=== PATIENT | male | born 1990 | race Caucasian/White ===

== ENCOUNTER 2017-07-11 01:16 | Emergency (ER) | payer SELFPAY ==
[2017-07-11 01:23] VITALS: BP 130/82
[2017-07-11] MEDS ORDERED: GABAPENTIN 300 MG CAPSULE PO ONE (01:46)
--- NOTE | 2017-07-11 01:54 | ER Document Report ---
ED Skin Rash/Insect Bite/Abscs - General Chief Complaint: Rash Stated Complaint: RASH Time Seen by Provider: 07/11/17 01:45 Notes: 27 years old male, had chickenpox as a child, 2 days ago started having pain over the right flank and today just prior to arrival he noticed rash along the right flank. Therefore presented to the ED. No fever chills or other constitutional symptoms. The pain is sharp and dermatomal pattern. TRAVEL OUTSIDE OF THE [place] IN LAST 30 DAYS: No - Related Data Allergies/Adverse Reactions: No Known Allergies Allergy (Verified 09/09/14 16:36) Past Medical History - Social History Smoking Status: Unknown if Ever Smoked Family History: None Patient has suicidal ideation: No Patient has homicidal ideation: No Pulmonary Medical History: Denies: Hx Tuberculosis Renal/ Medical History: Denies: Hx Peritoneal Dialysis Past Surgical History: Denies: Hx Pacemaker - Immunizations Hx Diphtheria, Pertussis, Tetanus Vaccination: Yes - unk Hx Pneumococcal Vaccination: 07/25/00 Review of Systems - Review of Systems Notes: REVIEW OF SYSTEMS: CONSTITUTIONAL : Denies fever, chills, or sweats. Denies recent illness. EENT: Denies eye, ear, throat, or mouth pain or symptoms. Denies nasal or sinus congestion or discharge. Denies throat, tongue, or mouth swelling or difficulty swallowing. CARDIOVASCULAR: Denies chest pain. Denies palpitations or racing or irregular heart beat. Denies ankle edema. RESPIRATORY: Denies cough, cold, or chest congestion. Denies shortness of breath, difficulty breathing, or wheezing. GASTROINTESTINAL: Denies abdominal pain or distention. Denies nausea, vomiting , or diarrhea. Denies blood in vomitus, stools, or per rectum. Denies black, tarry stools. Denies constipation. GENITOURINARY: Denies difficulty urinating, painful urination, burning, frequency, blood in urine, or discharge. MUSCULOSKELETAL: Denies back or neck pain or stiffness. Denies joint pain or swelling. SKIN: As per history of complain HEMATOLOGIC : Denies easy bruising or bleeding. LYMPHATIC: Denies swollen, enlarged glands. NEUROLOGICAL: Denies confusion or altered mental status. Denies passing out or loss of consciousness. Denies dizziness or lightheadedness. Denies headache. Denies weakness or paralysis or loss of use of either side. Denies problems with gait or speech. Denies sensory loss, numbness, or tingling. Denies seizures. PSYCHIATRIC: Denies anxiety or stress. Denies depression, suicidal ideation, or homicidal ideation. ALL OTHER SYSTEMS REVIEWED AND NEGATIVE. Dictation was performed using [employer] voice recognition software PHYSICAL EXAMINATION: GENERAL: Well-appearing, well-nourished and in acute distress. HEAD: Atraumatic, normocephalic. EYES: Pupils equal round and reactive to light, extraocular movements intact, sclera anicteric, conjunctiva are normal. ENT: Nares patent, oropharynx clear without exudates. Moist mucous membranes. NECK: Normal range of motion, supple without lymphadenopathy LUNGS: Breath sounds clear to auscultation bilaterally and equal. No wheezes rales or rhonchi. HEART: Regular rate and rhythm without murmurs ABDOMEN: Soft, nontender, nondistended abdomen. No guarding, no rebound. No masses appreciated. Musculoskeletal: Normal range of motion, no pitting or edema. No cyanosis. NEUROLOGICAL: Cranial nerves grossly intact. Normal speech, normal gait. Normal sensory, motor exams PSYCH: Normal mood, normal affect. SKIN: Right 12th dermatomal pattern starting from the right flank all the way close to the suprapubic region scattered erythematous papular rash in crops were noted. Physical Exam - Vital signs Vitals: Temp Pulse Resp BP Pulse Ox 97.9 F 76 16 130/82 H 98 07/11/17 01:22 07/11/17 01:22 07/11/17 01:22 07/11/17 01:22 07/11/17 01:22 Course - Re-evaluation Re-evalutation: 07/11/17 01:48 He was explained what the rashes, what need to be done to control the pain. - Vital Signs Vital signs: Temp Pulse Resp BP Pulse Ox 97.9 F 76 16 130/82 H 98 07/11/17 01:22 07/11/17 01:22 07/11/17 01:22 07/11/17 01:22 07/11/17 01:22 Discharge - Discharge Clinical Impression: Herpes zoster complicated Condition: Fair Disposition: HOME, SELF-CARE Instructions: Shingles ([facility]) Prescriptions: Gabapentin 300 mg PO TID #90 capsule Ibuprofen 600 mg PO QID PRN #60 tablet PRN Reason: Valacyclovir HCl [Valtrex] 1,000 mg PO TID #30 tablet
== END 2017-07-11 02:02 | disposition home or self-care (01) ==
LOC: ER 01:16
DX: B02.8 Zoster with other complications (principal)
CPT/HCPCS: 99282

== ENCOUNTER 2019-09-02 10:10 | Emergency (ER) | payer BC ==
--- NOTE | 2019-09-02 11:02 | ER Document Report ---
ED Medical Screen (RME) - General Chief Complaint: Abdominal Pain Stated Complaint: ABDOMINAL PAIN Time Seen by Provider: 09/02/19 10:58 Mode of Arrival: Ambulatory Information source: Patient Notes: 29-year-old male patient presented emergency department chief complaint of possible lump on his right testicle. Patient reports he just noticed it last night. Patient reports it is large and hard. Patient denies any dysuria or penile drainage. He is also reporting a lump in the right groin area. Patient does report a lot of heavy lifting for work. Exam deferred until patient is in her room. Patient is alert, oriented, no acute distress noted, declines the need for of any pain medication. I have greeted and performed a rapid initial assessment of this patient. A comprehensive ED assessment and evaluation of the patient, analysis of test results and completion of the medical decision making process will be conducted by additional ED providers. I have specifically instructed the patient or family members with the patient to immediately return to any nursing staff should anything change in the patient's condition or with their chief complaint. TRAVEL OUTSIDE OF THE [place] IN LAST 30 DAYS: No - Related Data Allergies/Adverse Reactions: No Known Allergies Allergy (Verified 09/09/14 16:36) Past Medical History Pulmonary Medical History: Denies: Hx Tuberculosis Renal/ Medical History: Denies: Hx Peritoneal Dialysis Past Surgical History: Denies: Hx Pacemaker - Immunizations Hx Diphtheria, Pertussis, Tetanus Vaccination: Yes - unk Physical Exam - Vital signs Vitals: Temp Pulse Resp BP Pulse Ox 98.1 F 69 16 115/83 100 09/02/19 10:09/02/19 10:09/02/19 10:09/02/19 10:09/02/19 10:29 Course - Vital Signs Vital signs: Temp Pulse Resp BP Pulse Ox 98.1 F 69 16 115/83 100 09/02/19 10:09/02/19 10:09/02/19 10:09/02/19 10:09/02/19 10:29
--- NOTE | 2019-09-02 12:21 | ER Document Report ---
ED General - General Chief Complaint: Testicular Lump Stated Complaint: ABDOMINAL PAIN Time Seen by Provider: 09/02/19 10:58 Mode of Arrival: Ambulatory TRAVEL OUTSIDE OF THE [place] IN LAST 30 DAYS: No - HPI Notes: Patient is a 29-year-old male who presents to the emergency department for evaluation of a lump in his scrotum. He states he noticed a small ache in his testicles yesterday. While investigating it, he felt a small solid lump. He has never felt anything similar. He denies any urinary symptoms. No other sores in the area. He denies any penile discharge or history of STDs. No dysuria, hematuria, urinary frequency. He denies any unintentional weight loss. At this time he has no pain. - Related Data Allergies/Adverse Reactions: No Known Allergies Allergy (Verified 09/09/14 16:36) Past Medical History - General Information source: Patient - Social History Smoking Status: Never Smoker Drug Abuse: Marijuana - Daily use for 10 years Family History: None Patient has suicidal ideation: No Patient has homicidal ideation: No - Medical History Medical History: Negative - Sorry Pulmonary Medical History: Denies: Hx Tuberculosis Renal/ Medical History: Denies: Hx Peritoneal Dialysis GI Medical History: Reports: Other - Admitted with appendicitis, never operated on Past Surgical History: Denies: Hx Pacemaker - Immunizations Hx Diphtheria, Pertussis, Tetanus Vaccination: Yes - unk Hx Pneumococcal Vaccination: 07/25/00 Review of Systems - Review of Systems Constitutional: No symptoms reported EENT: No symptoms reported Cardiovascular: No symptoms reported Respiratory: No symptoms reported Gastrointestinal: No symptoms reported Genitourinary: No symptoms reported Male Genitourinary: See HPI Skin: No symptoms reported Neurological/Psychological: No symptoms reported Physical Exam - Vital signs Vitals: Temp Pulse Resp BP Pulse Ox 98.1 F 69 16 115/83 100 09/02/19 10:29 09/02/19 10:29 09/02/19 10:29 09/02/19 10:29 09/02/19 10:29 - Notes Notes: Vital signs reviewed, please refer to chart. Head is normocephalic, atraumatic. Pupils equal round, reactive to light. Neck is supple without meningismus. Heart is regular rate and rhythm. Lungs are clear to auscultation bilaterally. Abdomen is soft, nontender, normoactive bowel sounds throughout. Extremities without cyanosis, clubbing. Posterior calves are nontender. Peripheral pulses are equal. Skin is warm and dry. Patient is awake, alert, neurological exam is nonfocal. Skin genital exam was performed with RAMSES Ace, present in the room. Patient is circumcised, no penile discharge. Bilateral testicles are descended. He has bi lateral inguinal hernias, easily reduced. He does have a small, solid, approximately 1 cm lesion in the center of the scrotum. Intact cremasteric reflex. Course - Re-evaluation Re-evalutation: 09/02/19 12:19 Patient presents emergency department for evaluation. He is found to have bilateral inguinal hernias, and a small palpable lump in his scrotum. Awaiting ultrasound results. At this point the patient is stable, we will continue to monitor. 09/02/19 15:17 I was contacted by radiology initially, then read the report in regards to the 2.8 cm mass attached to the right testicle, concerning for possible malignant neoplasm. Findings were explained to the patient, as was the need for close follow-up. I spoke with Dr. Gonzalez, urologist workers compensation manager and [facility]. He in fact was able to review the ultrasound, was concerned as well. He asked that several labs to be ordered, including serum beta-hCG, LDH, alpha-fetoprotein. He also asked that the CT with and without IV contrast be ordered. He would like either himself or 1 of his partners to see him here in [place] tomorrow in the office. All these findings were explained to the patient and he was amenable to this plan. He understands that lab work will likely not be available. CT scan was performed, labs were drawn. Patient is stable and will follow-up closely at [facility] urology clinic. - Vital Signs Vital signs: Temp Pulse Resp BP Pulse Ox 98.1 F 69 16 115/83 100 09/02/19 10:29 09/02/19 10:29 09/02/19 10:29 09/02/19 10:29 09/02/19 10:29 - Laboratory Result Diagrams: 09/02/19 14:52 09/02/19 14:52 Discharge - Discharge Clinical Impression: Bilateral inguinal hernia, Testicular mass Condition: Stable Disposition: HOME, SELF-CARE Instructions: Growth or Mass, Pending Workup ([facility]) Additional Instructions: Your CT scan and blood work are still pending at this time. You are to follow- up closely with [facility] urology. Please call them tomorrow morning to schedule an appointment to be seen tomorrow. Return to the emergency department with worsening or new concerning symptoms of any sort. [email or web address] [facility] Referrals: ARCENIO GONZALEZ MD [NO LOCAL MD] - Follow up as needed
[2019-09-02 12:31] LABS: APPEARANCE,URINE CLEAR; BILIRUBIN,URINE NEGATIVE (NEGATIVE); COLOR,URINE YELLOW; GLUCOSE, URINE NEGATIVE (NEGATIVE); KETONES,URINE NEGATIVE (NEGATIVE); PROTEIN,URINE NEGATIVE (NEGATIVE); URINE SPECIFIC GRAVITY 1.015; UROBILINOGEN,URINE NEGATIVE mg/dL (<2.0)
--- NOTE | 2019-09-02 12:32 | RADIOLOGY REPORT (SQ) ---
EXAM DESCRIPTION: U/S SCROTUM W/DOPPLER COMPLETED DATE/TIME: 09/02/2019 11:56 am REASON FOR STUDY: R testicular lump/groin lump COMPARISON: None. TECHNIQUE: Static and realtime simon scale imaging of the scrotum and testes. Selected color Doppler and spectral images recorded to document blood flow. LIMITATIONS: None. FINDINGS: RIGHT: TESTICLE: Measures 4.2 x 2.0 x 2.9 cm. Heterogeneous echotexture. Normal blood flow. There is a lo w-attenuation solid nodule with microcalcifications and internal flow on Doppler images measuring 2.8 x 1.0 x 2.1 cm, this corresponds to the area of palpable abnormality. EPIDIDYMIS: The epididymal head measures 1.0 x 0.7 x 1.0 cm HYDROCELE OR VARICOCELE: Trace hydrocele measuring 1.1 x 0.4 x 1.1 cm. No varicocele was noted. HERNIA OR EXTRA-TESTICULAR MASS: Small right inguinal hernia noted . No peristalsing bowel loop was visualized. LEFT: TESTICLE: Measures 4.5 x 1.8 x 3.1 cm. Normal echotexture. Normal blood flow. No mass. EPIDIDYMIS: The epididymal head measures 1.0 x 1.0 x 1.2 cm. Complex appearing cysts at the epididym al head are noted, the largest measuring 5 x 7 x 6 mm. HYDROCELE OR VARICOCELE: Small hydrocele with internal debris measuring 3.6 x 0.6 x 3.2 cm. No varic ocele was noted. HERNIA OR EXTRA-TESTICULAR MASS: Small left inguinal hernia noted. No peristalsing bowel was visuali zed. IMPRESSION: 1. 2.8 x 1.0 x 2.1 cm low-attenuation solid nodule with microcalcifications and vascular flow at the right testicle, corresponding to the area of palpable abnormality, concerning for testic ular neoplasm. Urology consult recommended. 2. Small complex appearing cysts at the left epididymal head. Small left-sided hydrocele with inter nal debris, suggestive of chronicity. 3. Trace right-sided hydrocele. 4. Small bilateral inguinal hernias. COMMUNICATION The critical information above was relayed directly by me by telephone to Dr. Won bravo 09/02/2019 at 12:24 hours with readback verification. TECHNICAL DOCUMENTATION: JOB ID: [id number] 2011 [employer]- All Rights Reserved Reading location - IP/workstation name: [email or web address]
[2019-09-02 15:15] LABS: ABSOLUTE EOSINOPHILS # (AUTO) 0.1 10^3/uL (0.0-0.6); ABSOLUTE LYMPHOCYTES (AUTO) 1.4 10^3/uL (0.5-4.7); ABSOLUTE MONOCYTES (AUTO) 0.4 10^3/uL (0.1-1.4); ABSOLUTE NEUT (AUTO) 5.8 10^3/uL (1.7-8.2); BASOPHILS % (AUTO) 0.2 % (0-2); EOSINOPHILS % (AUTO) 1.2 % (0-6); HEMATOCRIT 45.1 % (37.9-51.0); HEMOGLOBIN 15.7 g/dL (13.5-17.0); LYMPHOCYTES % (AUTO) 18.1 % (13-45); MEAN CORPUSCULAR HEMOGLOBIN 30.3 pg (27.0-33.4); MEAN CORPUSCULAR HGB CONC 34.9 g/dL (32.0-36.0); MEAN CORPUSCULAR VOLUME 87 fl (80-97); MONOCYTES % (AUTO) 5.2 % (3-13); PLATELET COUNT 288 10^3/uL (150-450); RED BLOOD COUNT 5.19 10^6/uL (4.35-5.55); RED CELL DISTRIBUTION WIDTH 12.8 % (11.5-14.0); SEGMENTED NEUTROPHILS % (AUTO) 75.3 % (42-78); TOTAL CELLS COUNTED % (AUTO) 100 %; WHITE BLOOD COUNT 7.8 10^3/uL (4.0-10.5)
[2019-09-02 15:49] LABS: ALBUMIN 5.1 g/dL (3.5-5.0); ALKALINE PHOSPHATASE 47 U/L (38-126); ANION GAP 9 (5-19); ASPARTATE AMINO TRANSFERASE 27 U/L (17-59); BILIRUBIN,DIRECT 0.2 mg/dL (0.0-0.4); BILIRUBIN,TOTAL 0.9 mg/dL (0.2-1.3); BLOOD UREA NITROGEN 12 mg/dL (7-20); CALCIUM 9.9 mg/dL (8.4-10.2); CARBON DIOXIDE 31 mmol/L (22-30); CHLORIDE 97 mmol/L (98-107); GLUCOSE 132 mg/dL (75-110); POTASSIUM 4.3 mmol/L (3.6-5.0); TOTAL PROTEIN 8.3 g/dL (6.3-8.2)
--- NOTE | 2019-09-02 15:51 | RADIOLOGY REPORT (SQ) ---
EXAM DESCRIPTION: CT ABD/PELVIS COMBO COMPLETED DATE/TIME: 09/02/2019 3:14 pm REASON FOR STUDY: testicular mass . Diffuse abdominal pain. COMPARISON: CT abdomen and pelvis 02/29/2012. TECHNIQUE: CT scan of the abdomen and pelvis performed with and without intravenous contrast, and wi thout oral contrast. Contrasted imaging performed helical scanning technique and dynamic intravenous contrast injection. Images reviewed with lung, soft tissue, and bone windows. Reconstructed coronal a nd sagittal MPR images reviewed. Delayed images for evaluation of the urinary system also acquired. A ll images stored on PACS. All CT scanners at this facility use dose modulation, iterative reconstruction, and/or weight based d osing when appropriate to reduce radiation dose to as low as reasonably achievable (ALARA). [facility]: Dose Right [facility]: CareDose [facility]: Dose Right [facility]: Teradose 4D [facility]: MedServe CONTRAST TYPE AND DOSE: contrast/concentration: Isovue 350.00 mg/ml; Total Contrast Delivered: 75.0 ml; Total Saline Delivered: 67.0 ml RENAL FUNCTION: None required. The patient is less than 50 years old. RADIATION DOSE: CT Rad equipment meets quality standard of care and radiation dose reduction techniq ues were employed. CTDIvol: 4.8 mGy. DLP: 820 mGy-cm. . LIMITATIONS: None. FINDINGS: NON-CONTRASTED IMAGING: No significant renal or bladder calcifications. No other significa nt organ calcifications. POST-CONTRASTED IMAGING: LOWER CHEST: No consolidation or pleural effusion. LIVER: Normal size. No masses. No dilated ducts. SPLEEN: Normal size. No focal lesions. PANCREAS: No significant calcifications. No adjacent inflammation or peripancreatic fluid collections . Pancreatic duct not dilated. GALLBLADDER: No identified stones by CT criteria. No inflammatory changes to suggest cholecystitis. ADRENAL GLANDS: No significant masses or asymmetry. RIGHT KIDNEY AND URETER: No solid masses. No significant calcifications. No hydronephrosis or hyd roureter. LEFT KIDNEY AND URETER: No solid masses. No significant calcifications. No hydronephrosis or hydr oureter. AORTA AND VESSELS: No abdominal aortic aneurysm or evidence for acute dissection. RETROPERITONEUM: No retroperitoneal adenopathy, hemorrhage or masses. BOWEL AND PERITONEAL CAVITY: No dilated bowel loops to suggest obstruction. No free fluid or free ai r. APPENDIX: Normal. PELVIS: No mass. No free fluid. The urinary bladder is partially distended. ABDOMINAL WALL: No hernias. BONES: No significant or acute findings. IMPRESSION: No acute findings in the abdomen or pelvis. No evidence for metastatic disease. TECHNICAL DOCUMENTATION: JOB ID: [id number] Quality ID # [id number]: Final reports with documentation of one or more dose reduction techniques (e.g., Au tomated exposure control, adjustment of the mA and/or kV according to patient size, use of iterative reconstruction technique) 2010 [employer]- All Rights Reserved Reading location - IP/workstation name: [email or web address]
[2019-09-02 16:15] VITALS: BP 119/64
== END 2019-09-02 16:12 | disposition home or self-care (01) ==
LOC: ER 10:10
DX: N50.9 Disorder of male genital organs, unspecified (principal); K40.20 Bilateral inguinal hernia, without obstruction or gangrene, not specified as recurrent; F12.10 Cannabis abuse, uncomplicated
CPT/HCPCS: 36415; 74178; 76870; 80053; 81001; 82105; 83615; 84702; 85025; 93976; 99284

== ENCOUNTER 2019-10-23 12:26 | Emergency (ER) | payer BC ==
[2019-10-23] MEDS ORDERED: NORMAL SALINE 1000 ML 1,000 ML IV ONE (12:54)
[2019-10-23] MEDS ORDERED: ONDANSETRON HCL INJ/PF 4 MG/2 ML SDV IV ONE (12:54)
[2019-10-23] MEDS ORDERED: MORPHINE SULFATE 10 MG/ML INJ IV ONE (12:55)
[2019-10-23 13:35] LABS: ABSOLUTE BASOPHILS # (AUTO) 0.1 10^3/uL (0.0-0.2); ABSOLUTE LYMPHOCYTES (AUTO) 0.7 10^3/uL (0.5-4.7); ABSOLUTE MONOCYTES (AUTO) 0.8 10^3/uL (0.1-1.4); ABSOLUTE NEUT (AUTO) 12.5 10^3/uL (1.7-8.2); BASOPHILS % (AUTO) 0.4 % (0-2); EOSINOPHILS % (AUTO) 0.1 % (0-6); HEMATOCRIT 39.3 % (37.9-51.0); HEMOGLOBIN 13.9 g/dL (13.5-17.0); LYMPHOCYTES % (AUTO) 5.1 % (13-45); MEAN CORPUSCULAR HEMOGLOBIN 30.7 pg (27.0-33.4); MEAN CORPUSCULAR HGB CONC 35.4 g/dL (32.0-36.0); MEAN CORPUSCULAR VOLUME 87 fl (80-97); PLATELET COUNT 231 10^3/uL (150-450); RED BLOOD COUNT 4.54 10^6/uL (4.35-5.55); RED CELL DISTRIBUTION WIDTH 13.2 % (11.5-14.0); SEGMENTED NEUTROPHILS % (AUTO) 88.4 % (42-78); TOTAL CELLS COUNTED % (AUTO) 100 %; WHITE BLOOD COUNT 14.2 10^3/uL (4.0-10.5)
[2019-10-23 13:47] LABS: APPEARANCE,URINE CLEAR; BILIRUBIN,URINE NEGATIVE (NEGATIVE); COLOR,URINE YELLOW; GLUCOSE, URINE NEGATIVE (NEGATIVE); KETONES,URINE TRACE mg/dL (NEGATIVE); LEUKOCYTE ESTERASE,URINE NEGATIVE (NEGATIVE); NITRITE,URINE NEGATIVE (NEGATIVE); PROTEIN,URINE NEGATIVE (NEGATIVE); URINE SPECIFIC GRAVITY 1.012; UROBILINOGEN,URINE NEGATIVE mg/dL (<2.0)
--- NOTE | 2019-10-23 13:54 | ER Document Report ---
ED GI/ - General Chief Complaint: Abdominal Pain Stated Complaint: RIGHT ABDOMINAL PAIN Time Seen by Provider: 10/23/19 12:53 Notes: CHIEF COMPLAINT: Back pain, right lower quadrant pain, fever HPI: 29-year-old male presenting to the emergency department complaining of pain in the lower back on the right side over the last 2 days no trauma. Patient also complaining of pain in the right lower quadrant region. 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 Denies any penile or testicular complaints denies dysuria. Patient states he did have nausea with an episode of vomiting today ROS: See HPI - all other systems were reviewed and are otherwise negative Constitutional: no fever Eyes: no drainage, no blurred vision ENT: no runny nose, no sore throat Cardiovascular: no chest pain Resp: no SOB, no cough GI: Positive vomiting, no diarrhea, positive abdominal pain : no dysuria Integumentary: no rash Allergy: no hives Musculoskeletal: no extremity pain or swelling Neurological: no numbness/tingling, no weakness MEDICATIONS: I agree with the patient medications as charted by the RN. ALLERGIES: I agree with the allergies as charted by the RN. PAST MEDICAL HISTORY/PAST SURGICAL HISTORY: Reviewed and agree as charted by RN. SOCIAL HISTORY: Reviewed and agree as charted by RN. FAMILY HISTORY: No significant familial comorbid conditions directly related to patient complaint EXAM: Reviewed vital signs as charted by RN. CONSTITUTIONAL: Alert and oriented and responds appropriately to questions. Well-appearing; well-nourished, moderate distress secondary to pain HEAD: Normocephalic; atraumatic EYES: PERRL; Conjunctivae clear, sclerae non-icteric ENT: normal nose; no rhinorrhea; moist mucous membranes; pharynx without lesions noted, no uvula edema or deviation, no tonsillar hypertrophy, phonation normal NECK: Supple without meningismus; non-tender; no cervical lymphadenopathy, no masses CARD: RRR; no murmurs, no clicks, no rubs, no gallops; symmetric distal pulses RESP: Normal chest excursion without splinting or tachypnea; breath sounds clear and equal bilaterally; no wheezes, no rhonchi, no rales, pulse oximetry 97% on room air not hypoxic ABD/GI: Normal bowel sounds; non-distended; soft, moderate tenderness in the right lower quadrant over McBurney's point with rebound and guarding; no palpable organomegaly or masses. BACK: The back appears normal and is tender to palpation in the right lower lumbar back, there is no CVA tenderness EXT: Normal ROM in all joints; non-tender to palpation; no cyanosis, no effusions, no edema SKIN: Normal color for age and race; warm; dry; good turgor; no acute lesions noted NEURO: Moves all extremities equally; Motor and sensory function intact PSYCH: The patient's mood and manner are appropriate. Grooming and personal hygiene are appropriate. MDM: 29-year-old male presenting for lower back pain, right lower quadrant pain over the last 2 days. Low-grade fever. Patient moderately uncomfortable with palpation of the right lower quadrant. Recent orchiectomy of the right testicle secondary to cancer is not on chemo or radiation. Will obtain CT to evaluate for appendicitis TRAVEL OUTSIDE OF THE [place] IN LAST 30 DAYS: No - Related Data Allergies/Adverse Reactions: No Known Allergies Allergy (Verified 09/09/14 16:36) Past Medical History - Social History Smoking Status: Never Smoker Chew tobacco use (# tins/day): No Frequency of alcohol use: Social Drug Abuse: Marijuana Family History: None Patient has suicidal ideation: No Patient has homicidal ideation: No Pulmonary Medical History: Denies: Hx Tuberculosis Renal/ Medical History: Denies: Hx Peritoneal Dialysis Past Surgical History: Denies: Hx Pacemaker - Immunizations Hx Diphtheria, Pertussis, Tetanus Vaccination: Yes - unk Hx Pneumococcal Vaccination: 07/25/00 Physical Exam - Vital signs Vitals: Temp Pulse Resp BP Pulse Ox 100.0 F 100 18 119/72 100 10/23/19 12:34 10/23/19 12:34 10/23/19 12:34 10/23/19 12:34 10/23/19 12:34 Course - Re-evaluation Re-evalutation: 10/23/19 16:[address] imaging shows small amount of free fluid in the pelvis. Radiologist feels this is pathologic in a male but patient had a right orchiectomy [address] Perdue at [facility] urology. Patient states he had a CT 2 weeks ago that showed some enlarged lymph nodes in the groin region but no other specific abnormalities. I discussed this at length with the patient. Discussed with Dr. turner attending. Advised patient 12 to 24-hour recheck. He indicates he will likely go to [facility] for recheck as his urologist is there. I did a testicular exam on the patient, the left testicle is descended and nontender there is no scrotal erythema or tenderness on exam. - Vital Signs Vital signs: Temp Pulse Resp BP Pulse Ox 100.0 F 100 18 119/72 100 10/23/19 12:34 10/23/19 12:34 10/23/19 12:34 10/23/19 12:34 10/23/19 12:34 - Laboratory Result Diagrams: 10/23/19 13:24 10/23/19 13:24 Laboratory results interpreted by me: 10/23/19 10/23/19 10/23/19 13:24 13:24 13:24 WBC 14.2 H Lymph % (Auto) 5.1 L Absolute Neuts (auto) 12.5 H Seg Neutrophils % 88.4 H Sodium 134.4 L Chloride 97 L Lipase 20.1 L Urine Ketones TRACE H Discharge - Discharge Clinical Impression: Right lower quadrant abdominal pain, Abnormal CT of the abdomen Condition: Stable Disposition: HOME, SELF-CARE Additional Instructions: Take the pain medications as prescribed. Do not drive if taking narcotics. Follow-up closely with urology for further evaluation. Your CT imaging today showed a small amount of free fluid in the pelvis this is nonspecific. You should be rechecked within the next 12 to 24 hours as discussed for reevaluation of your pain and symptoms. You may return to the emergency department here for this or you may follow-up at [facility] where you had your surgery and where your urologist is located Prescriptions: Oxycodone HCl/Acetaminophen [Percocet 5-325 mg Tablet] 1 tab PO Q4H PRN #10 tab PRN Reason: Referrals: DENISSE PERDUE MD [NO LOCAL MD] - Follow up as needed
[2019-10-23 13:55] LABS: ALBUMIN 4.9 g/dL (3.5-5.0); ALKALINE PHOSPHATASE 58 U/L (38-126); ANION GAP 11 (5-19); ASPARTATE AMINO TRANSFERASE 27 U/L (17-59); BILIRUBIN,DIRECT 0.1 mg/dL (0.0-0.4); BILIRUBIN,TOTAL 1.2 mg/dL (0.2-1.3); BLOOD UREA NITROGEN 9 mg/dL (7-20); CALCIUM 9.6 mg/dL (8.4-10.2); CARBON DIOXIDE 26 mmol/L (22-30); CHLORIDE 97 mmol/L (98-107); GLUCOSE 104 mg/dL (75-110); POTASSIUM 4.1 mmol/L (3.6-5.0); TOTAL PROTEIN 7.9 g/dL (6.3-8.2)
--- NOTE | 2019-10-23 16:13 | RADIOLOGY REPORT (SQ) ---
EXAM DESCRIPTION: CT ABD/PELVIS WITH IV ORAL IMAGES COMPLETED DATE/TIME: 10/23/2019 3:36 pm REASON FOR STUDY: appendicitis COMPARISON: 02/29/2012 TECHNIQUE: CT scan of the abdomen and pelvis performed using helical scanning technique with dynamic intravenous contrast injection. No oral contrast. Images reviewed with lung, soft tissue, and bone windows. Reconstructed coronal and sagittal MPR images reviewed. Delayed images for evaluation of the urinary system also acquired. All images stored on PACS. All CT scanners at this facility use dose modulation, iterative reconstruction, and/or weight based d osing when appropriate to reduce radiation dose to as low as reasonably achievable (ALARA). [facility]: Dose Right [facility]: CareDose [facility]: Dose Right [facility]: Teradose 4D [facility]: [employer] CONTRAST TYPE AND DOSE: contrast/concentration: Isovue 350.00 mg/ml; Total Contrast Delivered: 75.0 ml; Total Saline Delivered: 67.0 ml RENAL FUNCTION: BUN 9, creatinine 0.69 RADIATION DOSE: CT Rad equipment meets quality standard of care and radiation dose reduction techniq ues were employed. CTDIvol: 4.8 - 5.2 mGy. DLP: 559 mGy-cm.. LIMITATIONS: None. FINDINGS: LOWER CHEST: No significant findings. No nodules or infiltrates. LIVER: Normal size. No masses. No dilated ducts. SPLEEN: Normal size. No focal lesions. PANCREAS: No masses. No significant calcifications. No adjacent inflammation or peripancreatic fluid collections. Pancreatic duct not dilated. GALLBLADDER: No identified stones by CT criteria. No inflammatory changes to suggest cholecystitis. ADRENAL GLANDS: No significant masses or asymmetry. RIGHT KIDNEY AND URETER: No solid masses. No significant calcifications. No hydronephrosis or hyd roureter. LEFT KIDNEY AND URETER: No solid masses. No significant calcifications. No hydronephrosis or hydr oureter. AORTA AND VESSELS: No aneurysm. No dissection. Renal arteries, SMA, celiac without stenosis. RETROPERITONEUM: No retroperitoneal adenopathy, hemorrhage or masses. BOWEL AND PERITONEAL CAVITY: No masses or inflammatory changes. No free fluid or peritoneal masses. APPENDIX: Normal. PELVIS: There is a very small amount of free fluid the pelvis which should be considered pathologic i n a male. ABDOMINAL WALL: No masses. No hernias. BONES: No significant or acute findings. OTHER: No other significant finding. IMPRESSION: Small amount of free fluid the pelvis. Etiology of this is uncertain. The appendix is normal. TECHNICAL DOCUMENTATION: JOB ID: [id number] Quality ID # [id number]: Final reports with documentation of one or more dose reduction techniques (e.g., Au tomated exposure control, adjustment of the mA and/or kV according to patient size, use of iterative reconstruction technique) 2010 [employer]- All Rights Reserved Reading location - IP/workstation name: [email or web address]
[2019-10-23] MEDS ORDERED: OXYCODONE-ACETAMINOPHEN 5-325 MG TABLET PO ONE (16:32)
[2019-10-23 16:44] VITALS: BP 120/68
== END 2019-10-23 17:08 | disposition home or self-care (01) ==
LOC: ER 12:26
DX: R10.31 Right lower quadrant pain (principal); R18.8 Other ascites; R10.813 Right lower quadrant abdominal tenderness; M54.5 Low back pain; R50.9 Fever, unspecified; R11.2 Nausea with vomiting, unspecified; Z85.47 Personal history of malignant neoplasm of testis; Z90.79 Acquired absence of other genital organ(s)
CPT/HCPCS: 99284; 96361; 96374; 96375; 36415; 83690; 85025; 80053; 81001; 74177; J2270; J2405; J7030

== ENCOUNTER → 2020-02-01 | Outpatient (CLI) | payer BC ==
--- NOTE | 2020-02-01 10:10 | RADIOLOGY REPORT (SQ) ---
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 EXAM PARAMETERS: NUMBER OF VIEWS: Two views. TECHNIQUE: PA and lateral views of the chest were obtained. RADIATION DOSE: NA LIMITATIONS: None. FINDINGS: LUNGS AND PLEURA: No consolidation, pleural effusion or pneumothorax. MEDIASTINUM AND HILAR STRUCTURES: No mediastinal or hilar contour abnormality. HEART AND VASCULAR STRUCTURES: The cardiac silhouette and pulmonary vasculature are within normal solares its. BONES: No acute findings. HARDWARE: None in the chest. OTHER: No other finding. IMPRESSION: No acute cardiopulmonary process. TECHNICAL DOCUMENTATION: JOB ID: [id number] 2010 [employer]- All Rights Reserved Reading location - IP/workstation name: [email or web address]
--- NOTE | 2020-02-01 12:26 | RADIOLOGY REPORT (SQ) ---
EXAM DESCRIPTION: CT ABD/PELVIS WITH IV ONLY IMAGES COMPLETED DATE/TIME: 02/01/2020 10:19 am REASON FOR STUDY: N50.89 OTHER SPECIFIED DISORDERS OF THE MALE GENITAL ORGANS, C34.91 MALIG N N50.89 OTHER SPECIFIED DISORDERS OF THE MALE GENITAL ORGANS COMPARISON: CT of the abdomen pelvis with contrast from 10/23/2019. TECHNIQUE: CT scan of the abdomen and pelvis performed using helical scanning technique with dynamic intravenous contrast injection. No oral contrast. Images reviewed with lung, soft tissue, and bone windows. Reconstructed coronal and sagittal MPR images reviewed. Delayed images for evaluation of the urinary system also acquired. All images stored on PACS. All CT scanners at this facility use dose modulation, iterative reconstruction, and/or weight based d osing when appropriate to reduce radiation dose to as low as reasonably achievable (ALARA). [facility]: Dose Right [facility]: CareDose [facility]: Dose Right [facility]: Teradose 4D [facility]: [employer] CONTRAST TYPE AND DOSE: Contrast/concentration: Isovue 350.00 mmol/ml; Total Contrast Delivered: 75. 0 ml; Total Saline Delivered: 67.0 ml RENAL FUNCTION: None required. The patient is less than 50 years old. RADIATION DOSE: CT Rad equipment meets quality standard of care and radiation dose reduction techniq ues were employed. CTDIvol: 2.7 - 2.7 mGy. DLP: 284 mGy-cm. LIMITATIONS: None. FINDINGS: LOWER CHEST: No acute findings. LIVER: The morphology of the liver is noncirrhotic. The portal veins are patent. There is no hepati c mass. SPLEEN: No splenomegaly or splenic mass. PANCREAS: No acute gross abnormality of the pancreas. GALLBLADDER: No abnormality that is apparent on CT. ADRENAL GLANDS: No mass or asymmetry. RIGHT KIDNEY AND URETER: No solid mass, hydronephrosis, nephrolithiasis, hydroureter or ureterolithia sis. LEFT KIDNEY AND URETER: No solid mass, hydronephrosis, nephrolithiasis, hydroureter or ureterolithias is. AORTA AND VESSELS: No aneurysm or dissection of the abdominal aorta. RETROPERITONEUM: No retroperitoneal adenopathy, hemorrhage or mass. BOWEL AND PERITONEAL CAVITY: No bowel obstruction, bowel wall thickening or pericolonic/ perienteric inflammation. No mesenteric adenopathy, free intraperitoneal fluid or mesenteric/ omental inflammati on. APPENDIX: Normal. PELVIS: No adenopathy or mass. ABDOMINAL WALL: No mass or hernia. BONES: No fracture or osseous lesion. OTHER: No other finding. IMPRESSION: No acute intra-abdominal abnormality. TECHNICAL DOCUMENTATION: JOB ID: [id number] Quality ID # [id number]: Final reports with documentation of one or more dose reduction techniques (e.g., Au tomated exposure control, adjustment of the mA and/or kV according to patient size, use of iterative reconstruction technique) 2010 [employer]- All Rights Reserved Reading location - IP/workstation name: [email or web address]
== END ==
LOC: RAD 09:35
PROVIDERS: ATTEND Urology
DX: N50.89 Other specified disorders of the male genital organs (principal); C34.91 Malignant neoplasm of unspecified part of right bronchus or lung
CPT/HCPCS: 71046; 74177